=== PATIENT | male | born 2000 | race Two or more races ===

== ENCOUNTER 2021-01-11 20:41 | Emergency (ER) | payer MEDICAID ==
[~2021-01-11] VITALS: Ht 172.7 cm; Wt 82.0 kg
[2021-01-11 20:58] VITALS: BP 141/87
== END 2021-01-11 23:41 | disposition left against medical advice (07) ==
LOC: ER 20:41
DX: Z53.21 Procedure and treatment not carried out due to patient leaving prior to being seen by health care provider (principal)